=== PATIENT | male | born 1985 | race Caucasian/White ===

== ENCOUNTER 2020-03-18 20:59 | Emergency (ER) | payer MEDICAID ==
[~2020-03-18] VITALS: Ht 180.3 cm; Wt 113.4 kg
--- NOTE | 2020-03-18 21:11 | NUR ---
PT TAKEN TO BED 8
[2020-03-18 21:14] VITALS: BP 146/89
--- NOTE | 2020-03-18 21:30 | NUR ---
NO NURSING INTERVENTIONS NEEDED
--- NOTE | 2020-03-18 21:30 | NUR ---
Dr. Gilbert examining patient.
[2020-03-18 21:42] VITALS: BP 146/89
== END 2020-03-18 21:42 | disposition home or self-care (01) ==
LOC: MED 20:59
DX: R60.9 Edema, unspecified (principal); R05 Cough; F17.200 Nicotine dependence, unspecified, uncomplicated; F14.90 Cocaine use, unspecified, uncomplicated; F12.90 Cannabis use, unspecified, uncomplicated; F15.90 Other stimulant use, unspecified, uncomplicated
CPT/HCPCS: 99283